=== PATIENT | female | born 1985 | race Two or more races ===

== ENCOUNTER 2023-07-09 17:29 | Emergency (ER) | payer SELFPAY ==
[~2023-07-09] VITALS: Ht 167.6 cm; Wt 63.0 kg
[2023-07-09 19:03] LABS: BILIRUBIN,URINE NEGATIVE (Neg); CLARITY,URINE SLIGHTLY CLOUDY (Clear); COLOR,URINE STRAW (Yellow); GLUCOSE, URINE NEGATIVE (Neg); KETONES,URINE NEGATIVE (Neg); LEUKOCYTE ESTERASE ,URINE MODERATE (Neg); NITRITES, URINE NEGATIVE (Neg); OCCULT BLOOD,URINE LARGE (Neg); PROTEIN,URINE NEGATIVE (Neg); UROBILINOGEN,URINE 0.2 E.U/dL (0.2-1.0)
[2023-07-09 19:04] LABS: URINE HCG NEGATIVE (NEG)
[2023-07-09 19:12] LABS: UA COLLECTION TYPE CLN CATCH MIDSTREAM
[2023-07-09 19:13] LABS: SQUAMOUS EPITHELIAL CELL,UR FEW /LPF (FEW)
[2023-07-09 19:14] LABS: BACTERIA,URINE 1+ /HPF (Neg)
[2023-07-09 19:43] VITALS: BP 107/55; PULSE 61; RESP 20; TEMP 98; O2SAT 100
== END 2023-07-09 19:45 | disposition home or self-care (01) ==
LOC: ER 17:30
DX: N93.9 Abnormal uterine and vaginal bleeding, unspecified (principal)
CPT/HCPCS: 81001; 81025; 87077; 87088; 87186; 99283